=== PATIENT | female | born 1995 | race Caucasian/White ===

== ENCOUNTER 2017-05-03 11:56 | Emergency (ER) | payer OTHER ==
[~2017-05-03] VITALS: Ht 154.9 cm; Wt 65.9 kg
[~2017-05-03 11:56] MED LIST: NO HOME MEDICATIONS; NORCO 325 MG-51 TAB PO
[2017-05-03 12:05] VITALS: TEMP 97
[2017-05-03] MEDS ORDERED: NORG-EE 0.18-01 EACH PO (12:07)
[2017-05-03 15:01] VITALS: BP 121/60; PULSE 105
== END 2017-05-03 15:03 | disposition home or self-care (01) ==
LOC: COL.ER 11:56
DX: S00.31XA Abrasion of nose, initial encounter (principal); F10.129 Alcohol abuse with intoxication, unspecified; Z32.02 Encounter for pregnancy test, result negative; Z87.81 Personal history of (healed) traumatic fracture; W18.30XA Fall on same level, unspecified, initial encounter
CPT/HCPCS: J2550; J7030

== ENCOUNTER 2020-06-25 01:19 | Outpatient (CLI) | payer BC ==
[~2020-06-25] VITALS: Ht 157.5 cm; Wt 77.3 kg
[~2020-06-25 01:19] MED LIST changes: +NORG-EE 0.18-01 EACH PO
--- NOTE | 2020-06-25 01:25 | NUR ---
G1 at 38 weeks and 1 day arrives to unit with complaint of spontaneous rupture of membranes. Pt states she felt a gush and trickling down her leg. Pt did not arrive to hospital with peripad. Pt reports good movement, occasional contractions, and denies vaginal bleeding. Pt denies RUQ pain, blurry vision, or headache. Pt oriented to room, call light within reach, bed in low and locked position. US and toco explained and applied. Plan of care reviewed. Vital signs WNL. Admission assessment started. Amnitrace negative SVE closed but soft ROM + collected and sent to lab.
[2020-06-25 01:45] VITALS: BP 127/79; PULSE 113; TEMP 97.8
[2020-06-25 01:55] VITALS: BP 120/77; PULSE 104
--- NOTE | 2020-06-25 01:55 | NUR ---
Category 1 FHR tracing obtained. Monitors for patient to ambulate in moon.
[2020-06-25] MEDS ORDERED: PRENATAL 191 CTB PO (02:10)
--- NOTE | 2020-06-25 02:45 | NUR ---
SVE unchanged from previous exam. ROM + test negative. Discharge instructions reviewed with patient, pt verbalized understanding. Pt seen ambulating off unit with spouse.
== END 2020-06-25 02:45 | disposition home or self-care (01) ==
LOC: LDRO 01:19
DX: O42.013 Preterm premature rupture of membranes, onset of labor within 24 hours of rupture, third trimester (principal); Z3A.38 38 weeks gestation of pregnancy

== ENCOUNTER 2020-07-08 08:18 | Inpatient (IN) | payer BC ==
[2020-07-08] VITALS (54 sets, daily range): BP systolic 95–145; BP diastolic 52–97; PULSE 80–125; TEMP 98–98.5
[~2020-07-08] VITALS: Ht 154.9 cm; Wt 81.4 kg
[~2020-07-08 08:18] MED LIST changes: +PRENATAL 191 CTB PO
--- NOTE | 2020-07-08 08:30 | NUR ---
Patient ambulatory onto unit with at side for labor check. Patient reports leaking of fluid starting at 0300 and continuing until now. Patient also reports irregular painful contractions. Patient reports good movement and denies vaginal bleeding. EFMs on, VS taken. AmniTrace negative x2. SVE /-3. Large amount of discharge noted with exam. BOW felt with SVE. Will notify for further orders.
--- NOTE | 2020-07-08 08:38 | NUR ---
0838- Amnisure collected by this RN. Assessment completed 917- Amnisure positive. Dr. Horn on unit and notified. Orders received to admit pt. 0935- IV to left hand. Routine labs obtained via IV site. Consent forms completed. LR infusing without difficulty. Patient declines covid test. 1000- Pitocin explained and started per protocol. Patient verbalizes understanding. PCN G 5mil units explained and started. 1040- Patient to birthing ball. EFM adjusted
[2020-07-08 09:48] LABS: BASO % 0.2 % (0.0-2.0); EOS # 0.1 (0.0-0.7); EOS % 0.7 % (0-4.0); GRAN % 74.6 % (42.2-75.2); HEMATOCRIT 39.2 % (37.0-47.0); HEMOGLOBIN 12.7 g/dl (12.5-16.0); LYMPH # 1.7 (1.2-3.4); LYMPH % 17.8 % (20.0-51.0); MEAN CELL VOLUME 90 fl (80.0-100.0); MEAN CORPUSCULAR HEMOGLOBIN 29 pg (27.0-31.0); MEAN CORPUSCULAR HGB CONC 32 g/dl (33.0-37.0); MEAN PLATELET VOLUME 11.5 fl (7.4-10.4); MONO # 0.5 (0.1-0.6); MONO % 5.6 % (1.7-9.3); PLATELET COUNT 199 K/mm3 (130-400); RED BLOOD COUNT 4.34 M/mm3 (4.10-5.30); REDCELL DISTRIBUTION WIDTH-CV 14.3 % (11.5-14.5)
--- NOTE | 2020-07-08 10:10 | NUR ---
Dr. Horn at bedside and reviews plan of care with patient and SO. Bedside ultrasound. Vtx presentation.
--- NOTE | 2020-07-08 11:45 | NUR ---
Patient crying/moaning/breathing through contractions. Patient requesting epidural placement at this time. Will notify [facility].
--- NOTE | 2020-07-08 12:00 | NUR ---
1200- LR bolus infusing. Patient coached through breathing techniques. 1215- Patient assisted to sit on edge of bed. Andria Sanderson CRNA at bedside. Time out. 1221- Single shot by Andria Sanderson CRNA 1223- Epidural placed and test dose at this time by Andria Sanderson CRNA. 1227- Patient wedge left. Plan of care and safety precautions reviewed. Patient verbalizes understanding. 1300- Patient comfortable with epidural. Reich catheter placed. Clear yellow urine return. SVE 4/-2. Patient repostioned.
--- NOTE | 2020-07-08 16:00 | NUR ---
1600- Side lying hip release. 1620- Right lateral with peanut ball in place.
--- NOTE | 2020-07-08 18:30 | NUR ---
Bedside report received from RIGO Brennan. Pt pushing intermittently, small crown with pushes. Dr. Horn en route to hospital.
--- NOTE | 2020-07-08 18:38 | NUR ---
1824 - Pt encouraged not to do full pushes, until phsyician arrives. Slightly bearing down with contractions. 1829 - Dr. Horn at bedside. Gown and gloved at perineum. Pt to do full pushes with contractions. Nursery nurse Mukesh at bedside. 1837 - Spontaneous delivery of viable girl. Infant placed to mothers abdomen, care of assumed to RIGO Mayorga. Cord clamped x [address] Horn after stop pulsating. FOB cut cord. Pitocin off. Cord blood obtained. 1841 - Spontaneous delivery of intact placenta. Pitocin restarted at 333 mL/hr. Fundal massage by Dr. Horn, minimal bleeding noted. At umbilicus. Epidural off. Second degree perineal laceration repaired by Dr. Horn. 1849 - Pericare provided. New chux beneath patient. Ice pad to perineum. Pt repositioned in bed for comfort. recovery started. See physician delivery note.
--- NOTE | 2020-07-08 21:05 | NUR ---
Pt able to lift and hold each leg off of bed for 5 seconds. Pt positioned to sitting on edge of bed. Epidural catheter removed at this time. Tip smooth, blue, and intact. Pt tolerated well. Pt able to ambulate to bathroom with standby assistance. Pt unable to void at this time. Educated on need of 3 measured voids, will attempt again soon. Pericare explained and provided. Mesh panties and peripad applied. Pt in own gown. Pt ambulated to room 207 with FOB and belonings.
[2020-07-09 02:40] VITALS: BP 129/80; PULSE 74; TEMP 98.2
[2020-07-09 07:11] LABS: HEMATOCRIT 29.5 % (37.0-47.0); HEMOGLOBIN 9.5 g/dl (12.5-16.0)
[2020-07-09 08:00] VITALS: BP 119/72; PULSE 108; TEMP 97.8
--- NOTE | 2020-07-09 10:01 | NUR ---
Initial visit; Parents thanked Cytologist for offering congratulations and God's blessings for the of their daughter. Cytologist thanked family for choosing [facility].
--- NOTE | 2020-07-09 15:38 | NUR ---
1400 patient refuses covid testing at this time.
[2020-07-09 15:40] VITALS: BP 100/62; PULSE 72; TEMP 97.8
[2020-07-09 21:45] VITALS: BP 130/2; PULSE 91; TEMP 98.4
[2020-07-10 08:00] VITALS: BP 135/83; PULSE 108; TEMP 97.7
[2020-07-10] MEDS ORDERED: MOTRIN 600600 MG/TAB PO (08:04)
--- NOTE | 2020-07-10 10:23 | NUR ---
1015 DISCHARGE INSTRUCTIONS REVIEWED WITH PATIENT. PATIENT VERBALIZED UNDERSTANDING. WILL NOTIFY THIS RN WHEN READY TO LEAVE.
--- NOTE | 2020-07-10 11:15 | NUR ---
1100 ALL PERSONAL BELONGINGS GATHERED FROM PATIENT ROOM. PATIENT LEFT AMBULATORY AND IN NO APPARENT DISTRESS. PATIENT ACCOMPANIED BY SIGNIFICANT OTHER AND THIS RN.
== END 2020-07-10 11:00 | disposition home or self-care (01) | DRG 807 ==
LOC: LDRO 08:18 → LDR 09:22 → OB 21:15
PROVIDERS: ADMIT Obstetrics & Gynecology
PROC: 10E0XZZ Delivery of Products of Conception, External Approach (ICD-10-PCS; principal; 2020-07-08)
PROC: 0KQM0ZZ Repair Perineum Muscle, Open Approach (ICD-10-PCS; 2020-07-08)
DX: O48.0 Post-term pregnancy (principal); Z37.0 Single live birth; O99.824 Streptococcus B carrier state complicating childbirth; O70.1 Second degree perineal laceration during delivery; Z3A.40 40 weeks gestation of pregnancy
CPT/HCPCS: J2540; J2590; J2795; J7120

== ENCOUNTER 2022-10-21 19:26 | Emergency (ER) | payer BC ==
[~2022-10-21] VITALS: Ht 157.5 cm; Wt 79.5 kg
[~2022-10-21 19:26] MED LIST changes: +MOTRIN 600600 MG/TAB PO
[2022-10-21 19:38] VITALS: TEMP 97.8
[2022-10-21 20:25] LABS: BASO % 0.4 % (0.0-2.0); EOS # 0.1 K/mm3 (0.0-0.7); EOS % 0.9 % (0.0-4.0); GRAN # 7.1 K/mm3 (1.4-6.5); GRAN % 62.7 % (42.2-75.2); HEMATOCRIT 44.5 % (37.0-47.0); HEMOGLOBIN 15.3 g/dl (12.5-16.0); LYMPH # 3.4 K/mm3 (1.2-3.4); LYMPH % 30.3 % (20.0-51.0); MEAN CELL VOLUME 93 fl (80.0-100.0); MEAN CORPUSCULAR HEMOGLOBIN 32 pg (27-31); MEAN CORPUSCULAR HGB CONC 34 g/dl (33.0-37.0); MEAN PLATELET VOLUME 10.5 fl (7.4-10.4); MONO # 0.6 K/mm3 (0.1-0.6); MONO % 5.4 % (1.7-9.3); PLATELET COUNT 278 K/mm3 (130-400); RED BLOOD COUNT 4.81 M/mm3 (4.10-5.30); REDCELL DISTRIBUTION WIDTH-CV 11.9 % (11.5-14.5)
[2022-10-21 20:39] LABS: ALBUMIN 4.4 gm/dL (3.5-5.0); BILIRUBIN,TOTAL 0.4 mg/dL (0.2-1.2); CALCIUM 9.8 mg/dL (8.4-10.2); CREATININE, serum 0.8 mg/dL (0.57-1.11); POTASSIUM 3.9 mmol/L (3.5-4.5); TOTAL PROTEIN 7.6 gm/dL (6.2-8.1)
[2022-10-21 22:43] VITALS: BP 111/82; PULSE 94
== END 2022-10-21 22:43 | disposition home or self-care (01) ==
LOC: COL.ER 19:26
PROVIDERS: Nurse Practitioner Primary Care
DX: S29.011A Strain of muscle and tendon of front wall of thorax, initial encounter (principal); Z28.311 Partially vaccinated for COVID-19; X50.1XXA Overexertion from prolonged static or awkward postures, initial encounter
CPT/HCPCS: J1200; J1885; J2405; J7120